=== PATIENT | male | born 1980 | race Caucasian/White ===

== ENCOUNTER 2020-05-07 01:04 | Emergency (ER) | payer BC, OTHER ==
[~2020-05-07] VITALS: Ht 182.9 cm; Wt 83.1 kg
[2020-05-07] MEDS ORDERED: ONDANSETRON 4 MG/2 ML (SDV) Z0FRAN IVP STA (01:14)
[2020-05-07] MEDS ORDERED: NS IV 1000 ML 1,000 ML IV STA (01:14)
[2020-05-07] MEDS ORDERED: KETOROLAC 30 MG/ML VIAL IVP STA (01:14)
[2020-05-07 01:19] LABS: HEMATOCRIT 46 % (40-54); HEMOGLOBIN 16.9 G/DL (13.3-17.7); MEAN CORPUSCULAR HEMOGLOBIN 33 PG (25-34); MEAN CORPUSCULAR HGB CONC 37 G/DL (32-36); MEAN CORPUSCULAR VOLUME 90 FL (80-99); WHITE BLOOD COUNT 6.3 10^3/uL (4.3-11.0)
--- NOTE | 2020-05-07 01:19 | ED GI ---
General Chief Complaint: Abdominal/GI Problems Stated Complaint: LEFT SIDE ABDOMINAL PAIN Source of Information: Patient History of Present Illness Date Seen by Provider: May 07, 2020 Time Seen by Provider: 01:05 Initial Comments 39 yo male presents with LLQ abdominal pain since Tuesday 05/01. He has had hemorrhoids and an anal fissure that he has been dealing with since before . He had some pain 4-5 out of 10 that is a pressure and aching that is constant in nature to the lower abdomen and LLQ area. It is a little better with standing and walking. He has no change with having a bowel movement or urinating. He denies any history of diverticulitis. He has his gallbladder and appendix still. He denies fever or chills. He has had some mild nausea. He was constipated yesterday but was also on the road travelling for over 9 hours so felt it was related to that. He took some miralax and it helped and he had a bowel movement today. Allergies and Home Medications Allergies Coded Allergies: No Known Drug Allergies (Unverified , 05/07/20) Home Medications Dicyclomine HCl 10 Mg Capsule, 10 MG PO Q6H PRN for abdominal pain Prescribed by: LEENA KC on 05/07/20 0246 Patient Home Medication List Home Medication List Reviewed: Yes Review of Systems Review of Systems Constitutional: No chills; dizziness (some with standing); No fever EENTM: No Symptoms Reported Respiratory: No Symptoms Reported Cardiovascular: No Symptoms Reported Gastrointestinal: See HPI Genitourinary: No Symptoms Reported Musculoskeletal: no symptoms reported Skin: no symptoms reported Psychiatric/Neurological: No Symptoms Reported Endocrine: No Symptoms Reported Past Pfflfcr-Uvhvay-Fitbzx Hx Past Med/Social Hx: Reviewed Nursing Past Med/Soc Hx Patient Social History Recent Foreign Travel: No Contact w/Someone Who Travel: No Past Medical History Respiratory: No Cardiac: No Neurological: No Genitourinary: No Gastrointestinal: Yes Hemorrhoids (Anal Fissures) Musculoskeletal: No Endocrine: No HEENT: No Cancer: No Psychosocial: No Physical Exam Vital Signs Vital Signs - First Documented 05/07/20 01:16 Temp 35.9 Pulse 72 Resp 18 B/P (MAP) 149/77 (101) Pulse Ox 98 O2 Delivery Room Air Capillary Refill : Height/Weight/BMI Height: '" Weight: lbs. oz. kg; BMI Method: General Appearance: WD/WN, no apparent distress Respiratory: chest non-tender, lungs clear, normal breath sounds, no respirat ory distress, no accessory muscle use Cardiovascular: normal peripheral pulses, regular rate, rhythm Gastrointestinal: normal bowel sounds, soft, no pulsatile mass; No guarding, No rebound; tenderness (LLQ and suprapubic mild tenderness to palpation); No mass Rectal: deferred Extremities: normal range of motion, normal capillary refill Neurologic/Psychiatric: alert, normal mood/affect, oriented x 3 Skin: normal color, warm/dry Images 1 - mild tenderness to palpation of the LLQ and suprapubic area. No rebound or guarding or mass Progress/Results/Core Measures Results/Orders Lab Results Laboratory Tests Test 05/07/20 01:05 05/07/20 01:12 Range/Units White Blood Count 6.3 4.3-11.0 10^3/uL Red Blood Count 5.13 4.35-5.85 10^6/uL Hemoglobin 16.9 13.3-17.7 G/DL Hematocrit 46 40-54 % Mean Corpuscular Volume 90 80-99 FL Mean Corpuscular Hemoglobin 33 25-34 PG Mean Corpuscular Hemoglobin Concent 37 H 32-36 G/DL Red Cell Distribution Width 12.3 10.0-14.5 % Platelet Count 165 130-400 10^3/uL Mean Platelet Volume 10.9 H 7.4-10.4 FL Immature Granulocyte % (Auto) 0 % Neutrophils (%) (Auto) 39 L 42-75 % Lymphocytes (%) (Auto) 48 H 12-44 % Monocytes (%) (Auto) 8 0-12 % Eosinophils (%) (Auto) 4 0-10 % Basophils (%) (Auto) 1 0-10 % Neutrophils # (Auto) 2.5 1.8-7.8 X 10^3 Lymphocytes # (Auto) 3.1 1.0-4.0 X 10^3 Monocytes # (Auto) 0.5 0.0-1.0 X 10^3 Eosinophils # (Auto) 0.2 0.0-0.3 10^3/uL Basophils # (Auto) 0.0 0.0-0.1 10^3/uL Immature Granulocyte # (Auto) 0.0 0.0-0.1 10^3/uL Sodium Level 141 135-145 MMOL/L Potassium Level 3.6 3.6-5.0 MMOL/L Chloride Level 103 98-107 MMOL/L Carbon Dioxide Level 28 21-32 MMOL/L Anion Gap 10 5-14 MMOL/L Blood Urea Nitrogen 16 7-18 MG/DL Creatinine 1.35 H 0.60-1.30 MG/DL Estimat Glomerular Filtration Rate 59 BUN/Creatinine Ratio 12 Glucose Level 100 70-105 MG/DL Calcium Level 9.7 8.5-10.1 MG/DL Corrected Calcium 8.5-10.1 MG/DL Total Bilirubin 0.6 0.1-1.0 MG/DL Aspartate Amino Transf (AST/SGOT) 27 5-34 U/L Alanine Aminotransferase (ALT/SGPT) 23 0-55 U/L Alkaline Phosphatase 84 40-136 U/L Total Protein 7.7 6.4-8.2 GM/DL Albumin 4.9 H 3.2-4.5 GM/DL Lipase 27 8-78 U/L Urine Color YELLOW Urine Clarity CLEAR Urine pH 7.0 5-9 Urine Specific [place] 1.010 L 1.016-1.022 Urine Protein NEGATIVE NEGATIVE Urine Glucose (UA) NEGATIVE NEGATIVE Urine Ketones NEGATIVE NEGATIVE Urine Nitrite NEGATIVE NEGATIVE Urine Bilirubin NEGATIVE NEGATIVE Urine Urobilinogen 0.2 < = 1.0 MG/DL Urine Leukocyte Esterase NEGATIVE NEGATIVE Urine RBC (Auto) NEGATIVE NEGATIVE Urine RBC NONE /HPF Urine WBC NONE /HPF Urine Squamous Epithelial Cells NONE /HPF Urine Crystals PRESENT H /LPF Urine Amorphous Sediment MOD APLLAVI PHOSPHATE H /LPF Urine Bacteria NEGATIVE /HPF Urine Casts NONE /LPF Urine Mucus NEGATIVE /LPF Urine Culture Indicated NO My Orders Orders - LEENA KC MD Comprehensive Metabolic Panel (05/07/20 01:12) Lipase (05/07/20 01:12) Ua Culture If Indicated (05/07/20 01:12) Ed Iv/Invasive Line Start (05/07/20 01:12) Cbc With Automated Diff (05/07/20 01:12) Ct Abdomen/Pelvis W (05/07/20 01:12) Ns Iv 1000 Ml (Sodium Chloride 0.9%) (05/07/20 01:14) Ketorolac Injection (Toradol Injection) (05/07/20 01:14) Ondansetron Injection (Zofran Injectio (05/07/20 01:14) Iohexol Injection (Omnipaque 350 Mg/Ml 1 (05/07/20 01:30) Received Contrast (Hold Metformin- Contr (05/07/20 01:30) Ns (Ivpb) (Sodium Chloride 0.9% Ivpb Bag (05/07/20 01:30) Rx-Dicyclomine Capsule (Rx-Bentyl Capsul (05/07/20 02:45) Medications Given in ED Current Medications Medications Dose Ordered Sig/Power Route Start Time Stop Time Status Last Admin Dose Admin Iohexol 100 ml ONCE ONCE IV 05/07/20 01:30 05/07/20 01:31 DC 05/07/20 01:47 100 ML Sodium Chloride 100 ml ONCE ONCE IV 05/07/20 01:30 05/07/20 01:31 DC 05/07/20 01:47 80 ML Vital Signs/I&O 05/07/20 01:16 Temp 35.9 Pulse 72 Resp 18 B/P (MAP) 149/77 (101) Pulse Ox 98 O2 Delivery Room Air Progress Progress Note #1: Progress Note check labs, urine, CT scan of abdomen/pelvis with IV contrast to evaluate for diverticulitis, inflammatory process of abdomen, colon, system. Give IVF for hydration, Toradol 30 mg IV for pain, Zofran 4 mg IV for nausea. Progress Note #2: Progress Note Labs do not show elevated WBC count but he does have an increase in lymphocytes for possible viral infection. Chemistry shows mild elevation of Cr to 1.35 for some dehydration. UA has some crystals to go with dehydration. awaiting CT scan report from [facility]. Reviewed labs with pt and he reports slight improvement of his discomfort with treatment in ED. Progress Note #3: Progress Note CT scan shows Multiple fluid containing loops of small bowel which is a nonspecific finding. However, this can be seen in enteritis. No other acute findings in abdomen and pelvis. advised pt to increase miralax to 2 times a day for next few days to help with constipation and increased stool in colon. Increase fluids and electrolyte drinks for hydration. Try bentyl for abdominal pain/cramping. Counseled on follow up and return precautions. Diagnostic Imaging Diagonstic Imaging: CT Plain Films/CT/US/NM/MRI: abdomen, pelvis Comments impression: 1. Multiple fluid containing loops of small bowel which is a nonspecific finding. However, this can be seen enteritis. 2. No other acute findings in the abdomen and pelvis. Read by radiologist Cheng Berkowitz M.D. at 0151 am and faxed at 0230 am Reviewed: Reviewed [place] Study Departure Impression Primary Impression: Acute abdominal pain in left lower quadrant Additional Impressions: Renal insufficiency, mild Constipation Qualified Codes: K59.00 - Constipation, unspecified Gastroenteritis and colitis, viral Disposition: 01 HOME, SELF-CARE Condition: Stable Departure-Patient Inst. Decision time for Depature: 02:53 Referrals: NO,LOCAL PHYSICIAN (PCP) Primary Care Physician Patient Instructions: Abdominal Pain, Adult ED, Constipation, Adult ED, Viral Gastroenteritis, Adult (DC), Dehydration, Adult ED Add. Discharge Instructions: Try increasing your Miralax to twice a day for the next few days to help with constipation to get your stools soft and regular. Then you could go back to once a day or every other day as needed to help keep your stool soft and regular where you are having a bowel movement every day that is soft and regular without you having to strain. The Miralax dose is 17 grams or 1 capful mixed in 8 ounces of water, juice or electrolyte drink. Increase your fluid intake and include electrolyte drinks such as Gatorade or Powerade type drinks to help with your hydration. If your pain worsens, you have fever over 101 F, uncontrolled vomiting then seek medical care for further evaluation. Try Dicyclomine (Bentyl) 10 mg up to 4 times a day to help with abdominal pain/cramping. All discharge instructions reviewed with patient and/or family. Voiced understanding. Scripts Dicyclomine HCl (Dicyclomine HCl) 10 Mg Capsule 10 MG PO Q6H PRN for abdominal pain for 7 Days, #28 CAP 0 Refills Prov: LEENA KC MD 05/07/20 LEENA KC MD May 07, 2020 01:19
[2020-05-07 01:20] LABS: BASOPHILS % (AUTO) 1 % (0-10); EOSINOPHILS # (AUTO) 0.2 10^3/uL (0.0-0.3); EOSINOPHILS % (AUTO) 4 % (0-10); LYMPHOCYTES # (AUTO) 3.1 X 10^3 (1.0-4.0); LYMPHOCYTES % (AUTO) 48 % (12-44); MEAN PLATELET VOLUME 10.9 FL (7.4-10.4); MONOCYTES # (AUTO) 0.5 X 10^3 (0.0-1.0); MONOCYTES % (AUTO) 8 % (0-12); NEUTROPHILS # (AUTO) 2.5 X 10^3 (1.8-7.8); NEUTROPHILS % (AUTO) 39 % (42-75); PLATELET COUNT 165 10^3/uL (130-400)
[2020-05-07] MEDS ORDERED: NS 100 ML (IVPB) BAG IV ONE (01:30)
[2020-05-07] MEDS ORDERED: HOLD METFORMIN - RECEIVED CONTRAST 20 ML VIAL IV SCH (01:30)
[2020-05-07] MEDS ORDERED: IOHEXOL 350 MG/ML 100 ML (OMNIPAQUE 350) VIAL IV ONE (01:30)
[2020-05-07 01:41] LABS: BUN/CREATININE RATIO 12; CALCIUM 9.7 MG/DL (8.5-10.1); CARBON DIOXIDE 28 MMOL/L (21-32); CHLORIDE 103 MMOL/L (98-107); CREATININE SERUM 1.35 MG/DL (0.60-1.30); GFR ESTIMATED 59; GLUCOSE 100 MG/DL (70-105); POTASSIUM 3.6 MMOL/L (3.6-5.0); SODIUM 141 MMOL/L (135-145)
[2020-05-07 01:42] LABS: ALANINE AMINOTRANSFERASE 23 U/L (0-55); ALBUMIN 4.9 GM/DL (3.2-4.5); ALKALINE PHOSPHATASE 84 U/L (40-136); BILIRUBIN,TOTAL 0.6 MG/DL (0.1-1.0); LIPASE 27 U/L (8-78); TOTAL PROTEIN 7.7 GM/DL (6.4-8.2)
[2020-05-07 01:50] LABS: AMORPHOUS SEDIMENT,UR MOD AMOR PHOSPHATE /LPF; BACTERIA,URINE NEGATIVE /HPF; BILIRUBIN,URINE NEGATIVE (NEGATIVE); CLARITY,URINE CLEAR; COLOR,URINE YELLOW; GLUCOSE, URINE (UA) NEGATIVE (NEGATIVE); KETONES,URINE NEGATIVE (NEGATIVE); LEUKOCYTE ESTERASE ,URINE NEGATIVE (NEGATIVE); NITRITE,URINE NEGATIVE (NEGATIVE); PROTEIN,URINE NEGATIVE (NEGATIVE)
[2020-05-07] MEDS ORDERED: RX-DICYCLOMINE 10 MG (BENTYL) CAP PPK#4 PO STA (02:45)
[2020-05-07] MEDS ORDERED: DICY10CA12 PO (02:46)
[2020-05-07 02:56] VITALS: BP 119/62
--- NOTE | 2020-05-07 06:40 | Diagnostic Imaging Report ---
PROCEDURE: CT abdomen and pelvis with contrast. TECHNIQUE: Multiple contiguous axial images were obtained through the abdomen and pelvis after administration of intravenous contrast. Auto Exposure Controls were utilized during the CT exam to meet ALARA standards for radiation dose reduction. All CT scans use one or more of the following dose optimizing techniques: automated exposure control, MA and/or KvP adjustment based on patient size and exam type or iterative reconstruction. INDICATION: Left lower quadrant pain. FINDINGS: The heart size is normal. The lung bases are clear. The liver is normal in size without focal lesions. Gallbladder is unremarkable. There is no biliary duct dilatation. There are calcified granulomas in the spleen. Pancreas is unremarkable. Adrenal glands are unremarkable. Kidneys normal in appearance. Abdominal aorta is nonaneurysmal. There are multiple fluid containing loops of small bowel which is nondilated. Bowel gas pattern is nonspecific. No free air. No ascites. There are no focal inflammatory changes. Bladder is normal. There is no adenopathy or free fluid. The osseous structures are unremarkable. IMPRESSION: Multiple fluid containing loops of small bowel which is nonspecific however can reflect enteritis. Recommend clinical correlation. No other acute abnormality in the abdomen or pelvis. Dictated by: Dictated on workstation # [id number]
== END 2020-05-07 02:56 | disposition home or self-care (01) ==
LOC: ER FS 01:11
DX: R10.32 Left lower quadrant pain (principal); N28.9 Disorder of kidney and ureter, unspecified; K59.00 Constipation, unspecified; K52.9 Noninfective gastroenteritis and colitis, unspecified
CPT/HCPCS: 36415; 74177; 80053; 81000; 83690; 85025